=== PATIENT | female | born 1975 ===

== ENCOUNTER 2018-06-10 14:51 | Emergency (ER) | payer MEDICAID ==
--- NOTE | 2018-06-10 16:49 | C.PDOC ---
History Of Present Illness 43 year old female presents to the ED complaining of pain to the left knee for 4 days. She denies any trauma or injury, states she woke up with the pain. Pain is localized to the posterior knee, and worsens with movement/change in position. Otherwise she denies any numbness, tingling, or extremity weakness. Time Seen by Provider: 06/10/18 15:06 Chief Complaint (Nursing): Lower Extremity Problem/Injury History Per: Patient History/Exam Limitations: no limitations Onset/Duration Of Symptoms: Days (x4) Current Symptoms Are (Timing): Still Present Past Medical History Reviewed: Historical Data, Nursing Documentation, Vital Signs Vital Signs: Last Vital Signs Temp 98.5 F 06/10/18 14:57 Pulse 79 06/10/18 15:18 Resp 18 06/10/18 15:18 BP 166/92 H 06/10/18 15:18 Pulse Ox 98 06/10/18 15:18 - Medical History PMH: GERD, HTN Other Surgeries: Colonoscopy, Hysterectomy Family History: States: No Known Family Hx - Social History Hx Alcohol Use: No Hx Substance Use: No - Immunization History Hx Tetanus Toxoid Vaccination: (unk) Hx Influenza Vaccination: No Hx Pneumococcal Vaccination: Yes Review Of Systems Except As Marked, All Systems Reviewed And Found Negative. Constitutional: Negative for: Fever Musculoskeletal: Positive for: Leg Pain (left knee pain) Neurological: Negative for: Weakness, Numbness, Incoordination Physical Exam - Physical Exam Appears: Non-toxic, No Acute Distress Skin: Normal Color, Warm, Dry Head: Atraumatic, Normacephalic Eye(s): bilateral: Normal Inspection, PERRL, EOMI Oral Mucosa: Moist Neck: Normal ROM Chest: Symmetrical Respiratory: No Accessory Muscle Use, Other (No respiratory distress) Extremity: Normal ROM, Tenderness (to the posterior aspect of left knee), No Calf Tenderness, Capillary Refill (less than 2 sec), No Swelling Pulses: Left Dorsalis Pedis: Normal, Right Dorsalis Pedis: Normal Neurological/Psych: Oriented x3, Normal Speech, Normal Motor, Normal Sensation ED Course And Treatment O2 Sat by Pulse Oximetry: 98 (RA) Pulse Ox Interpretation: Normal - Other Rad left knee xray X-Ray: Interpreted by Me Interpretation: No fx, no lesions, no dislocations - CT Scan/US LLE duplex Other Rad Studies (CT/US): Radiology Report Reviewed CT/US Interpretation: As per therapy tech: no evidence of DVT. Progress Note: X-ray and vascular study ordered. X-ray shows no acute fracture or dislocation. Doppler US complete, and is negative for DVT. Knee brace applied to left knee. Counseled patient regarding diagnosis and the importance of follow up, referral to orthopedist provided. Disposition Counseled Patient/Family Regarding: Studies Performed, Diagnosis, Rx Given - Disposition Referrals: Newton Gale MD [Staff Provider] - Disposition: HOME/ ROUTINE Disposition Time: 16:46 Condition: STABLE Additional Instructions: Follow up with PMD and Orthopedist within 1-2 days. Return to ED if feel worse. 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 - Scribe Statement The provider has reviewed the documentation as recorded by the Scribe (Mery Gonsalez) All medical record entries made by the Scribe were at my direction and personally dictated by me. I have reviewed the chart and agree that the record accurately reflects my personal performance of the history, physical exam, medical decision making, and the department course for this patient. I have also personally directed, reviewed, and agree with the discharge instructions and disposition.
[2018-06-10 17:12] VITALS: BP 152/102; PULSE 80; RESP 16; TEMP 99
--- NOTE | 2018-06-10 17:21 | RAD ---
Date of service: 06/10/2018 PROCEDURE: Left Knee Radiographs. HISTORY: Pain. COMPARISON: None. FINDINGS: BONES: Normal. No fracture. JOINTS: Very tiny posterior superior patella enthesophyte. JOINT EFFUSION: None. OTHER FINDINGS: None. IMPRESSION: No evidence of acute displaced fracture nor dislocation
[2018-06-10 18:17] VITALS: O2SAT 98
== END 2018-06-10 17:05 | disposition home or self-care (01) ==
LOC: C.ER 14:51
DX: M25.562 Pain in left knee (principal); I10 Essential (primary) hypertension